=== PATIENT | male | born 1980 | race Caucasian/White ===

== ENCOUNTER 2017-08-15 08:02 | Emergency (ER) | payer SELFPAY ==
[2017-08-15] MEDS ORDERED: ONDANSETRON HCL INJ/PF 4 MG/2 ML SDV IV ONE (08:21)
[2017-08-15] MEDS ORDERED: MORPHINE SULFATE 10 MG/ML INJ IV ONE ×2 (08:21→09:21)
[2017-08-15] MEDS ORDERED: NORMAL SALINE 1000 ML 1,000 ML IV ONE ×2 (08:21)
--- NOTE | 2017-08-15 08:35 | ER Document Report ---
ED General - General Chief Complaint: Abdominal Pain Stated Complaint: ABDOMINAL PAIN Time Seen by Provider: 08/15/17 08:13 TRAVEL OUTSIDE OF THE [place]. IN LAST 30 DAYS: No - HPI Patient complains to provider of: Right lower quadrant abdominal pain Notes: Patient presents today right lower quadrant abdominal pain started approximately 10:00 last night. Patient denies any trauma to the area. Denies any recent heavy lifting. Patient states dull in onset now has increased in intensity. Patient states pain exacerbated with hitting bumps in the road patient also states pain exacerbated with walking and bending. Patient denies any fevers chills nausea vomiting or diarrhea. Patient denies any previous abdominal surgeries. Upon my evaluation patient is voluntarily guarding the right lower quadrant sitting on side the bed. Patient does have a difficult time lying in stretcher. Denies any pain radiation to his testicles or to the other parts of the abdomen. Denies any pain in the back. - Related Data Allergies/Adverse Reactions: Penicillins Allergy (Verified 08/15/17 08:05) pineapple [Pineapple] Allergy (Verified 08/15/17 08:05) Past Medical History - Social History Smoking Status: Unknown if Ever Smoked Family History: Reviewed & Not Pertinent - Past Medical History Cardiac Medical History: Denies: Hx Coronary Artery Disease, Hx Hypertension Pulmonary Medical History: Denies: Hx Asthma Endocrine Medical History: Denies: Hx Diabetes Mellitus Type 1, Hx Diabetes Mellitus Type 2 Renal/ Medical History: Reports: Hx Epididymitis - Immunizations Immunizations up to date: Yes Hx Diphtheria, Pertussis, Tetanus Vaccination: Yes Review of Systems - Review of Systems Constitutional: No symptoms reported EENT: No symptoms reported Cardiovascular: No symptoms reported Respiratory: No symptoms reported Gastrointestinal: Abdominal pain Genitourinary: No symptoms reported Male Genitourinary: No symptoms reported Musculoskeletal: No symptoms reported Skin: No symptoms reported Hematologic/Lymphatic: No symptoms reported Neurological/Psychological: No symptoms reported Physical Exam - Vital signs Vitals: Temp Pulse Resp BP Pulse Ox 97.7 F 90 18 139/90 H 99 08/15/17 08:08 08/15/17 08:08 08/15/17 08:08 08/15/17 08:08 08/15/17 08:08 Interpretation: Normal - General General appearance: Appears well, Alert - HEENT Head: Normocephalic, Atraumatic Eyes: Normal Pupils: PERRL - Respiratory Respiratory status: No respiratory distress Chest status: Nontender Breath sounds: Normal Chest palpation: Normal - Cardiovascular Rhythm: Regular Heart sounds: Normal auscultation Murmur: No - Abdominal Inspection: Normal Distension: No distension Bowel sounds: Normal Tenderness: Tender - Right lower quadrant tenderness voluntary guarding, McBurney's point Organomegaly: No organomegaly - Back Back: Normal, Nontender - Extremities General upper extremity: Normal inspection, Nontender, Normal color, Normal ROM , Normal temperature General lower extremity: Normal inspection, Nontender, Normal color, Normal ROM , Normal temperature, Normal weight bearing. No: Ethan's sign - Neurological Neuro grossly intact: Yes Cognition: Normal Orientation: AAOx4 [place] Coma Scale Eye Opening: Spontaneous [place] Coma Scale Verbal: Oriented [place] Coma Scale Motor: Obeys Commands Tio Coma Scale Total: 15 Speech: Normal Motor strength normal: LUE, RUE, LLE, RLE Sensory: Normal - Psychological Associated symptoms: Normal affect, Normal mood - Skin Skin Temperature: Warm Skin Moisture: Dry Skin Color: Normal Course - Re-evaluation Re-evalutation: 08/15/17 14:24 CT scan negative for acute appendicitis. Negative for any acute abdominal pathology. Lab work does not show any significant pathology. Evaluation patient still mildly tender however this is improved. On examination patient will be discharged home still encouraged patient to observe himself for changes in symptoms return immediately if he develops a fever patient agrees and discharged home - Vital Signs Vital signs: Temp Pulse Resp BP Pulse Ox 97.7 F 90 18 139/90 H 99 08/15/17 08:08 08/15/17 08:08 08/15/17 08:08 08/15/17 08:08 08/15/17 08:08 - Laboratory Result Diagrams: 08/15/17 08:28 08/15/17 08:28 Laboratory results interpreted by me: 08/15/17 08/15/17 08/15/17 08:28 08:28 08:52 WBC 13.2 H Absolute Neutrophils 9.7 H ALT 75 H Urine Blood SMALL H Discharge - Discharge Clinical Impression: RLQ abdominal pain Condition: Good Disposition: HOME, SELF-CARE Instructions: Abdominal Pain ([facility]), Observation for Appendicitis ([facility]) Additional Instructions: At this time your lab work and CAT scan did not show any critical pathology. Please follow-up with your primary care physician. Return to the ER if symptoms worsen. Specifically if you develop a fever and continue to have pain. Take medications as prescribed. He may also take Tylenol and Motrin for pain control. Prescriptions: Ondansetron [Zofran Odt] 4 mg PO Q6 #20 tab.rapdis Tramadol HCl [Ultram 50 mg Tablet] 50 mg PO ASDIR PRN #14 tablet PRN Reason: Forms: Return to Work
[2017-08-15 08:44] LABS: ABSOLUTE BASOPHILS # (AUTO) 0.1 10^3/uL (0.0-0.2); ABSOLUTE EOSINOPHILS # (AUTO) 0.3 10^3/uL (0.0-0.6); ABSOLUTE LYMPHOCYTES (AUTO) 2.2 10^3/uL (0.5-4.7); ABSOLUTE MONOCYTES (AUTO) 0.9 10^3/uL (0.1-1.4); ABSOLUTE NEUT (AUTO) 9.7 10^3/uL (1.7-8.2); BASOPHILS % (AUTO) 0.6 % (0-2); EOSINOPHILS % (AUTO) 2.5 % (0-6); HEMOGLOBIN 14.3 g/dL (13.5-17.0); HGB HCT DIFFERENCE 1.9; LYMPHOCYTES % (AUTO) 16.3 % (13-45); MEAN CORPUSCULAR HEMOGLOBIN 29.9 pg (27.0-33.4); MEAN CORPUSCULAR HGB CONC 34.9 g/dL (32.0-36.0); MEAN CORPUSCULAR VOLUME 86 fl (80-97); MONOCYTES % (AUTO) 6.7 % (3-13); RED BLOOD COUNT 4.79 10^6/uL (4.35-5.55); RED CELL DISTRIBUTION WIDTH 13.1 % (11.5-14.0); SEGMENTED NEUTROPHILS % (AUTO) 73.9 % (42-78); WHITE BLOOD COUNT 13.2 10^3/uL (4.0-10.5)
[2017-08-15 09:03] LABS: ALANINE AMINOTRANSFERASE 75 U/L (21-72); ALBUMIN 4.8 g/dL (3.5-5.0); ALKALINE PHOSPHATASE 72 U/L (38-126); ANION GAP 14 (5-19); ASPARTATE AMINO TRANSFERASE 39 U/L (17-59); BILIRUBIN,DIRECT 0.2 mg/dL (0.0-0.4); BILIRUBIN,TOTAL 0.7 mg/dL (0.2-1.3); BLOOD UREA NITROGEN 14 mg/dL (7-20); CALCIUM 9.4 mg/dL (8.4-10.2); CARBON DIOXIDE 24 mmol/L (22-30); CHLORIDE 105 mmol/L (98-107); CREATININE RESULT 0.82 mg/dL (0.52-1.25); GLUCOSE 98 mg/dL (75-110); LIPASE 72.1 U/L (23-300); POTASSIUM 4.2 mmol/L (3.6-5.0); SODIUM 143.3 mmol/L (137-145); TOTAL PROTEIN 7.8 g/dL (6.3-8.2)
[2017-08-15 09:17] LABS: APPEARANCE,URINE CLEAR; BILIRUBIN,URINE NEGATIVE (NEGATIVE); GLUCOSE, URINE NEGATIVE (NEGATIVE); KETONES,URINE NEGATIVE (NEGATIVE); LEUKOCYTE ESTERASE,URINE NEGATIVE (NEGATIVE); NITRITE,URINE NEGATIVE (NEGATIVE); PROTEIN,URINE NEGATIVE (NEGATIVE); URINE SPECIFIC GRAVITY 1.003; UROBILINOGEN,URINE NEGATIVE mg/dL (<2.0)
--- NOTE | 2017-08-15 11:37 | RADIOLOGY REPORT (SQ) ---
EXAM DESCRIPTION: CT ABD/PELVIS WITH IV ORAL COMPLETED DATE/TIME: 08/15/2017 11:16 am REASON FOR STUDY: RLQ pain COMPARISON: None. TECHNIQUE: CT scan of the abdomen and pelvis performed using helical scanning technique with dynamic intravenous contrast injection. Oral contrast. Images reviewed with lung, soft tissue, and bone win dows. Reconstructed coronal and sagittal MPR images reviewed. Delayed images for evaluation of the ur inary system also acquired. All images stored on PACS. All CT scanners at this facility use dose modulation, iterative reconstruction, and/or weight based d osing when appropriate to reduce radiation dose to as low as reasonably achievable (ALARA). [facility]: Dose Right [facility]: CareDose [facility]: Dose Right [facility]: Teradose 4D [facility]: The Naked Song CONTRAST TYPE AND DOSE: contrast/concentration: Isovue 370.00 mg/ml; Total Contrast Delivered: 74.0 ml; Total Saline Delivered: 66.0 ml RENAL FUNCTION: Creatinine 0.8 BUN 14 RADIATION DOSE: CT Rad equipment meets quality standard of care and radiation dose reduction techniq ues were employed. CTDIvol: 6.2 - 8.8 mGy. DLP: 802 mGy-cm.. LIMITATIONS: None. FINDINGS: LOWER CHEST: No significant findings. No nodules or infiltrates. LIVER: The liver is somewhat hypoattenuating. There is no mass. SPLEEN: Normal size. No focal lesions. PANCREAS: No masses. No significant calcifications. No adjacent inflammation or peripancreatic fluid collections. Pancreatic duct not dilated. GALLBLADDER: No identified stones by CT criteria. No inflammatory changes to suggest cholecystitis. ADRENAL GLANDS: No significant masses or asymmetry. RIGHT KIDNEY AND URETER: No solid masses. No significant calcifications. No hydronephrosis or hyd roureter. LEFT KIDNEY AND URETER: No solid masses. No significant calcifications. No hydronephrosis or hydr oureter. AORTA AND VESSELS: No aneurysm. No dissection. Renal arteries, SMA, celiac without stenosis. RETROPERITONEUM: No retroperitoneal adenopathy, hemorrhage or masses. BOWEL AND PERITONEAL CAVITY: No masses or inflammatory changes. No free fluid or peritoneal masses. APPENDIX: Normal. PELVIS: No mass. No free fluid. Normal bladder. ABDOMINAL WALL: No masses. No hernias. BONES: No significant or acute findings. OTHER: No other significant finding. IMPRESSION: There appears to be some degree of fatty infiltration of the liver. No other significan t abnormality is seen in the abdomen or pelvis. TECHNICAL DOCUMENTATION: JOB ID: [id number] Quality ID # [id number]: Final reports with documentation of one or more dose reduction techniques (e.g., Au tomated exposure control, adjustment of the mA and/or kV according to patient size, use of iterative reconstruction technique) 2010 [email or web address]- All Rights Reserved
[2017-08-15] MEDS ORDERED: KETOROLAC TROMETHAMINE INJ/PF 30 MG/1 ML SDV IV ONE (11:51)
[2017-08-15 12:37] VITALS: BP 119/85
== END 2017-08-15 12:37 | disposition home or self-care (01) ==
LOC: ER 08:02
DX: R10.31 Right lower quadrant pain (principal); Z88.0 Allergy status to penicillin; Z91.018 Allergy to other foods
CPT/HCPCS: 96376; 99284; 96361; 96374; 96375; 36415; 83690; 85025; 80053; 81001; 74177; J1885; J2270; J2405; J7030

== ENCOUNTER 2017-08-19 14:09 | Emergency (ER) | payer OTHER ==
[2017-08-19] MEDS ORDERED: HYDROMORPHONE HCL INJ/PF 2 MG/ML AMPULE IV ONE (14:51)
--- NOTE | 2017-08-19 15:04 | ER Document Report ---
ED Medical Screen (RME) - General Mode of Arrival: Ambulatory Information source: Patient TRAVEL OUTSIDE OF THE [place] IN LAST 30 DAYS: No <TASHA SOSA - Last Filed: 08/19/17 15:15> <MATIAS GARY - Last Filed: 08/19/17 16:18> - General Chief Complaint: Abdominal Pain Stated Complaint: ABDOMINAL PAIN Time Seen by Provider: 08/19/17 14:45 Notes: Patient is a 36 year old male presenting to the emergency department complaining abdominal pain onset Tuesday. Patient states that he was seen here on Tuesday and given treatment and his symptoms temporarily subsided until yesterday. Patient states the pain starts in his lower abdominal and shoots into his right leg and into testicles. Patient also complains of chills which is new. Patient denies dysuria, vomiting, fevers, numbness or tingleness. I have greeted and performed a rapid initial assessment of this patient. A comprehensive ED assessment and evaluation of the patient, analysis of test results and completion of the medical decision making process will be conducted by additional ED providers. (TASHA SOSA) - Related Data Allergies/Adverse Reactions: Penicillins Allergy (Verified 08/19/17 14:10) pineapple [Pineapple] Allergy (Verified 08/19/17 14:10) Past Medical History - Past Medical History Cardiac Medical History: Denies: Hx Coronary Artery Disease, Hx Hypertension Pulmonary Medical History: Denies: Hx Asthma Endocrine Medical History: Denies: Hx Diabetes Mellitus Type 1, Hx Diabetes Mellitus Type 2 Renal/ Medical History: Reports: Hx Epididymitis. Denies: Hx Peritoneal Dialysis - Immunizations Immunizations up to date: Yes Hx Diphtheria, Pertussis, Tetanus Vaccination: Yes <TASHA SOSA - Last Filed: 08/19/17 15:15> Physical Exam <TASHA SOSA - Last Filed: 08/19/17 15:15> <MATIAS GARY - Last Filed: 08/19/17 16:18> - Vital signs Vitals: Temp Pulse Resp BP Pulse Ox 97.9 F 95 18 137/88 H 97 08/19/17 14:14 08/19/17 14:14 08/19/17 14:14 08/19/17 14:14 08/19/17 14:14 - Notes Notes: GENERAL: Alert, interacts well. No acute distress. LUNGS: Clear to auscultation bilaterally, no wheezes, rales, or rhonchi. No respiratory distress. HEART: Regular rate and rhythm. No murmurs, gallops, or rubs. ABDOMEN: Soft, tender to palpation in the RLQ. Non-distended. Bowel sounds present in all 4 quadrants. (TASHA SOSA) Course - Laboratory Result Diagrams: 08/19/17 15:20 08/19/17 15:20 <MATIAS GARY - Last Filed: 08/19/17 16:18> - Vital Signs Vital signs: Temp Pulse Resp BP Pulse Ox 97.9 F 95 18 137/88 H 97 08/19/17 14:14 08/19/17 14:14 08/19/17 14:14 08/19/17 14:14 08/19/17 14:14 - Laboratory Laboratory results interpreted by me: 08/19/17 08/19/17 15:20 15:20 Calcium 10.8 H ALT 75 H Total Protein 8.9 H Albumin 5.3 H Urine Blood SMALL H Scribe Documentation - Scribe Written by Carmine:: Carmine Fields, 08/19/2017 15:16 acting as scribe for :: Herberth <TASHA SOSA - Last Filed: 08/19/17 15:15>
[2017-08-19 15:56] LABS: ABSOLUTE BASOPHILS # (AUTO) 0.1 10^3/uL (0.0-0.2); ABSOLUTE EOSINOPHILS # (AUTO) 0.4 10^3/uL (0.0-0.6); ABSOLUTE LYMPHOCYTES (AUTO) 2.2 10^3/uL (0.5-4.7); ABSOLUTE MONOCYTES (AUTO) 0.9 10^3/uL (0.1-1.4); ABSOLUTE NEUT (AUTO) 5.9 10^3/uL (1.7-8.2); BASOPHILS % (AUTO) 0.7 % (0-2); EOSINOPHILS % (AUTO) 4.3 % (0-6); HEMATOCRIT 46.4 % (37.9-51.0); HEMOGLOBIN 16.2 g/dL (13.5-17.0); HGB HCT DIFFERENCE 2.2; LYMPHOCYTES % (AUTO) 23.4 % (13-45); MEAN CORPUSCULAR HEMOGLOBIN 30.2 pg (27.0-33.4); MEAN CORPUSCULAR HGB CONC 34.9 g/dL (32.0-36.0); MEAN CORPUSCULAR VOLUME 87 fl (80-97); MONOCYTES % (AUTO) 9.2 % (3-13); RED BLOOD COUNT 5.37 10^6/uL (4.35-5.55); RED CELL DISTRIBUTION WIDTH 12.8 % (11.5-14.0); SEGMENTED NEUTROPHILS % (AUTO) 62.4 % (42-78); WHITE BLOOD COUNT 9.4 10^3/uL (4.0-10.5)
[2017-08-19 15:58] LABS: APPEARANCE,URINE CLEAR; BILIRUBIN,URINE NEGATIVE (NEGATIVE); GLUCOSE, URINE NEGATIVE (NEGATIVE); KETONES,URINE NEGATIVE (NEGATIVE); LEUKOCYTE ESTERASE,URINE NEGATIVE (NEGATIVE); NITRITE,URINE NEGATIVE (NEGATIVE); PROTEIN,URINE NEGATIVE (NEGATIVE); URINE SPECIFIC GRAVITY 1.004; UROBILINOGEN,URINE NEGATIVE mg/dL (<2.0)
[2017-08-19 16:14] LABS: ALANINE AMINOTRANSFERASE 75 U/L (21-72); ALBUMIN 5.3 g/dL (3.5-5.0); ALKALINE PHOSPHATASE 65 U/L (38-126); ANION GAP 15 (5-19); ASPARTATE AMINO TRANSFERASE 43 U/L (17-59); BILIRUBIN,DIRECT 0.3 mg/dL (0.0-0.4); BILIRUBIN,TOTAL 0.4 mg/dL (0.2-1.3); BLOOD UREA NITROGEN 15 mg/dL (7-20); CALCIUM 10.8 mg/dL (8.4-10.2); CARBON DIOXIDE 30 mmol/L (22-30); CHLORIDE 99 mmol/L (98-107); CREATININE RESULT 0.93 mg/dL (0.52-1.25); GLUCOSE 81 mg/dL (75-110); POTASSIUM 4.8 mmol/L (3.6-5.0); SODIUM 143.6 mmol/L (137-145); TOTAL PROTEIN 8.9 g/dL (6.3-8.2)
--- NOTE | 2017-08-19 16:43 | ER Document Report ---
ED GI/ - General Chief Complaint: Abdominal Pain Stated Complaint: ABDOMINAL PAIN Time Seen by Provider: 08/19/17 14:45 Mode of Arrival: Ambulatory Notes: The patient is a 36-year-old male who presents with right testicular pain. He was seen in the ER 4 days ago and had a negative CT abdomen pelvis for appendicitis or any other acute processes. He felt better, but the pain returned earlier today and he was told to come back to the ER if it worsened. Patient said that he has had similar pain about 4 years ago when he was diagnosed with epididymitis. No concern for STDs. Patient said that he is having pain when he urinates. He denies nausea, vomiting, diarrhea, constipation, flank pain, fevers, hematuria or rash. TRAVEL OUTSIDE OF THE [place] IN LAST 30 DAYS: No - Related Data Allergies/Adverse Reactions: Penicillins Allergy (Verified 08/19/17 14:10) pineapple [Pineapple] Allergy (Verified 08/19/17 14:10) Past Medical History - General Information source: Patient - Social History Smoking Status: Unknown if Ever Smoked Family History: Reviewed & Not Pertinent Patient has suicidal ideation: No Patient has homicidal ideation: No - Past Medical History Cardiac Medical History: Denies: Hx Coronary Artery Disease, Hx Hypertension Pulmonary Medical History: Denies: Hx Asthma Endocrine Medical History: Denies: Hx Diabetes Mellitus Type 1, Hx Diabetes Mellitus Type 2 Renal/ Medical History: Reports: Hx Epididymitis. Denies: Hx Peritoneal Dialysis - Immunizations Immunizations up to date: Yes Hx Diphtheria, Pertussis, Tetanus Vaccination: Yes Review of Systems - Review of Systems Notes: REVIEW OF SYSTEMS: CONSTITUTIONAL: -fevers, -chills EENT: -eye pain, -difficulty swallowing, -nasal congestion CARDIOVASCULAR:-chest pain, -syncope. RESPIRATORY: -cough, -SOB GASTROINTESTINAL: +RLQ abdominal pain, -nausea, -vomiting, -diarrhea GENITOURINARY: +dysuria, -hematuria MUSCULOSKELETAL: -back pain, -neck pain SKIN: -rash or skin lesions. HEMATOLOGIC: -easy bruising or bleeding. LYMPHATIC: -swollen, enlarged glands. NEUROLOGICAL: -altered mental status or loss of consciousness, -headache, - neurologic symptoms PSYCHIATRIC: -anxiety, -depression. ALL OTHER SYSTEMS REVIEWED AND NEGATIVE. Physical Exam - Vital signs Vitals: Temp Pulse Resp BP Pulse Ox 97.9 F 95 18 137/88 H 97 08/19/17 14:14 08/19/17 14:14 08/19/17 14:14 08/19/17 14:14 08/19/17 14:14 - Notes Notes: PHYSICAL EXAMINATION: GENERAL: Well-appearing, well-nourished and in no acute distress. HEAD: Atraumatic, normocephalic. EYES: Pupils equal round and reactive to light, extraocular movements intact, sclera anicteric, conjunctiva are normal. ENT: nares patent, oropharynx clear without exudates. Moist mucous membranes. NECK: Normal range of motion, supple without lymphadenopathy LUNGS: Breath sounds clear to auscultation bilaterally and equal. No wheezes rales or rhonchi. HEART: Regular rate and rhythm without murmurs ABDOMEN: Soft, mild RLQ tenderness, normoactive bowel sounds. No guarding, no rebound. No masses appreciated. : Tender right epididymis and testicle. Normal lie of testicle. No inguinal hernia palpated. Mild right inguinal lymphadenopathy. EXTREMITIES: Normal range of motion, no pitting or edema. No cyanosis. NEUROLOGICAL: Cranial nerves grossly intact. Normal speech, normal gait. Normal sensory and motor exams. PSYCH: Normal mood, normal affect. SKIN: Warm, Dry, normal turgor, no rashes or lesions noted. Course - Re-evaluation Re-evalutation: Patient with right lower quadrant and right testicular pain that felt similar to his prior episodes of epididymitis. Ultrasound shows right inguinal lymph nodes, but normal blood flow to testicles. No hernia. He had a CT abdomen pelvis 4 days ago which showed a normal appendix and no other acute findings. Dr. Menchaca (Surgicalist refrigeration service inspector) saw and evaluated patient. He does not suspect intra-abdominal pathology at this time. He suspects more of pathology. Pt states that he has no concerns for STDs. Due to patient's symptoms consistent with prior episode of epididymitis, will begin anti- inflammatories, Levaquin and close f/u at Urologist. Given very strict return precautions and he understands. - Vital Signs Vital signs: Temp Pulse Resp BP Pulse Ox 98.6 F 78 14 124/88 H 98 08/19/17 17:52 08/19/17 17:52 08/19/17 17:52 08/19/17 17:52 08/19/17 17:52 - Laboratory Result Diagrams: 08/19/17 15:20 08/19/17 15:20 Laboratory results interpreted by me: 08/19/17 08/19/17 15:20 15:20 Calcium 10.8 H ALT 75 H Total Protein 8.9 H Albumin 5.3 H Urine Blood SMALL H - Diagnostic Test Radiology reviewed: Image reviewed, Reports reviewed Radiology results interpreted by me: Scrotal US: Right inguinal lymph nodes, normal testicles. Discharge - Discharge Clinical Impression: Pain in scrotum Condition: Stable Disposition: HOME, SELF-CARE Additional Instructions: Epididymitis You most likely have epididymitis. This is an inflammation of the organ just behind the testicle, called the epididymis. It can be due to infection in the bladder or prostate. Many cases are simply inflammation and are not caused by germs. Epididymitis often develops after heavy lifting or vigorous exercise. Antibiotics and antiinflammatory medication are often prescribed. Elevation of the scrotum with a jock-strap or tight briefs will help with the pain. Pain medication may be required. Either cold packs or warm sitz baths can help with the pain -- ask your doctor which he recommends for your case. It may take 10 to 14 days until the pain is gone. Avoid heavy lifting during this time. Call the doctor or go to the hospital if you develop fever, increasing pain , or severe swelling, or if you fail to improve as expected. Prescriptions: Hydrocodone/Acetaminophen [Sebring 5-325 mg Tablet] 1 tab PO Q6H PRN #10 tablet PRN Reason: Levofloxacin [Levaquin 750 mg Tablet] 750 mg PO DAILY #10 tablet Naproxen [Naprosyn 250 mg Tablet] 500 mg PO Q12H PRN #14 tablet PRN Reason: Forms: Elevated Blood Pressure Referrals: [facility] [Provider Group] - Follow up as needed
[2017-08-19] MEDS ORDERED: MORPHINE SULFATE 10 MG/ML INJ IV ONE (17:29)
--- NOTE | 2017-08-19 17:39 | RADIOLOGY REPORT (SQ) ---
EXAM DESCRIPTION: U/S SCROTUM W/DOPPLER COMPLETED DATE/TIME: 08/19/2017 5:24 pm REASON FOR STUDY: R testicular and abd pain COMPARISON: None. TECHNIQUE: Static and realtime tucker scale imaging of the scrotum and testes. Selected color Doppler and spectral images recorded to document blood flow. LIMITATIONS: None. FINDINGS: RIGHT: TESTICLE: Normal size. Microlithiasis. Normal blood flow. No mass. EPIDIDYMIS: Normal. HYDROCELE OR VARICOCELE: Small hydrocele with debris. No varicocele. HERNIA OR EXTRA-TESTICULAR MASS: No. OTHER: Small lymph nodes in the right inguinal region. No hernia. LEFT: TESTICLE: Normal size. Microlithiasis. Normal blood flow. No mass. EPIDIDYMIS: Normal. HYDROCELE OR VARICOCELE: Small hydrocele with debris. No varicocele. HERNIA OR EXTRA-TESTICULAR MASS: No. OTHER: No other significant finding. IMPRESSION: NO EVIDENCE OF TESTICULAR MASS OR TORSION. Small lymph nodes in the right inguinal regio n. No hernia. TECHNICAL DOCUMENTATION: JOB ID: [id number] [place]-72 2010 [employer] All Rights Reserved
[2017-08-19] MEDS ORDERED: NAPROXEN 250 MG TABLET PO ONE (19:23)
[2017-08-19] MEDS ORDERED: HYDROCODONE/ACETAMINOPHEN 5-325 MG TABLET PO ONE (19:24)
[2017-08-19] MEDS ORDERED: LEVOFLOXACIN 750 MG TABLET PO ONE (19:24)
--- NOTE | 2017-08-19 19:58 | CONSULTATION REPORT E ---
Consultation Report NAME: JERRY WING : 1980 AGE: 36Y DATE: 08/19/2017 TO: JULIÁN ZAPIEN M.D. FROM: Jae AMBROSE, Requesting Physician The patient is seen at the request of Dr. BROWNLEE, Emergency Department. CHIEF COMPLAINT: Right scrotal pain. REPORT OF CONSULTATION: The patient is a 36-year-old white male with an approximate 1-week history of right testicular pain. The patient was seen in the Emergency Department approximately 1 week ago and got diagnosed with abdominal pain of uncertain etiology. He was sent home on pain medications, antinausea medicine. He had a CT scan of the abdomen and pelvis which was negative for acute appendicitis. The patient reports he continued to have pain mostly in the testicular region and in the upper scrotum. He denies history of trauma. He had a previous episode, not quite as intense, according to his report, approximately 3 years ago and was diagnosed with epididymitis and was treated by a urologist. In the Emergency Department, the patient underwent ultrasonography of the scrotal area on the right side, was found to have small lymph nodes. Otherwise, no hernia, small hydrocele on the right side only. Because of continued pain, surgery was consulted. PAST MEDICAL HISTORY: None. PAST SURGICAL HISTORY: None. ALLERGIES: PENICILLIN. SOCIAL HISTORY: The patient does smoke. 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 REVIEW OF SYSTEMS: As per HPI. CONSTITUTIONAL: Patient denies. CARDIOVASCULAR: Patient denies. MUSCULOSKELETAL: Patient denies. PHYSICAL EXAMINATION: GENERAL: Patient in mild distress. VITAL SIGNS: Stable. PSYCH: Patient is alert and oriented x4. NEUROLOGIC: Grossly intact in the upper and lower extremities. PULMONARY: Lungs clear to auscultation bilaterally. HEART: Without murmur or gallop. ABDOMEN: Soft, nontender. No peritoneal signs. GENITOURINARY: Groins examined bilaterally. Penis circumcised. Hair is shaved partly. Testicles are descended bilaterally. There is tenderness along the right spermatic cord. There may be some fullness in the mid zone, but no becky hematoma, cellulitis, discoloration, etc. LABORATORY PROFILE: Completely unremarkable today. Urinalysis is small blood, but no red cells detected. IMPRESSION: Right inguinal and epididymal pain, most consistent with epididymitis; other urologic diagnoses including orchitis to be considered; no evidence of acute surgical abdomen, inguinal hernia, etc. RECOMMENDATIONS: 1. No indication for surgical intervention. 2. Pain management consideration or p.o. course of antibiotics. 3. Follow up with urology. I addressed the above with patient and patient's mother at bedside as well as the Emergency Department staff. DICTATING PHYSICIAN: JULIÁN ZAPIEN M.D. [id number] PHY#: [id number] ID: [id number] JOB#: [id number] ACCT: [id number] cc:JULIÁN ZAPIEN M.D. > MTDD
[2017-08-19 20:39] VITALS: BP 127/88
== END 2017-08-19 19:49 | disposition home or self-care (01) ==
LOC: ER 14:09
DX: N50.82 Scrotal pain (principal); R10.9 Unspecified abdominal pain; N50.811 Right testicular pain
CPT/HCPCS: 99285; 96374; 96375; 36415; 85025; 80053; 81001; 76870; 93976; J2270; J1170

== ENCOUNTER 2020-01-23 11:39 | Emergency (ER) | payer OTHER ==
--- NOTE | 2020-01-23 12:03 | ER Document Report ---
ED Medical Screen (RME) - General Chief Complaint: Electrocution Stated Complaint: ELECTROCUTION,CHEST PAIN Time Seen by Provider: 01/23/20 12:01 Mode of Arrival: Ambulatory Information source: Patient Notes: 39-year-old male presented to ED for complaint of chest pain after he was working on a stove about 10:30 AM when he became electrocuted causing chest pain to the arm and chest muscles. He is alert oriented respirations regular and unlabored speaking in full sentences. He states he does have a lot of pain in the right arm and chest. I have greeted and performed a rapid initial assessment of this patient. A comprehensive ED assessment and evaluation of the patient, analysis of test results and completion of medical decision making process will be conducted by an additional ED providers. TRAVEL OUTSIDE OF THE [place] IN LAST 30 DAYS: No - Related Data Allergies/Adverse Reactions: Penicillins Allergy (Verified 01/23/20 12:01) pineapple [Pineapple] Allergy (Verified 01/23/20 12:01) Past Medical History - Past Medical History Cardiac Medical History: Denies: Hx Coronary Artery Disease, Hx Hypertension Pulmonary Medical History: Denies: Hx Asthma Endocrine Medical History: Denies: Hx Diabetes Mellitus Type 1, Hx Diabetes Mellitus Type 2 Renal/ Medical History: Reports: Hx Epididymitis. Denies: Hx Peritoneal Dialysis - Immunizations Immunizations up to date: Yes Hx Diphtheria, Pertussis, Tetanus Vaccination: Yes Physical Exam - Vital signs Vitals: Temp Pulse Resp BP Pulse Ox 98.1 F 83 18 141/87 H 98 01/23/20 11:51 01/23/20 11:51 01/23/20 11:51 01/23/20 11:51 01/23/20 11:51 Course - Vital Signs Vital signs: Temp Pulse Resp BP Pulse Ox 98.1 F 83 18 141/87 H 98 01/23/20 11:51 01/23/20 11:51 01/23/20 11:51 01/23/20 11:51 01/23/20 11:51
--- NOTE | 2020-01-23 12:43 | RADIOLOGY REPORT (SQ) ---
EXAM DESCRIPTION: CHEST 2 VIEWS IMAGES COMPLETED DATE/TIME: 01/23/2020 12:32 pm REASON FOR STUDY: Electrocution while working on the stove chest ender COMPARISON: None. EXAM PARAMETERS: NUMBER OF VIEWS: Two views. TECHNIQUE: PA and lateral views of the chest were obtained. RADIATION DOSE: NA LIMITATIONS: None. FINDINGS: LUNGS AND PLEURA: No consolidation, pleural effusion or pneumothorax. MEDIASTINUM AND HILAR STRUCTURES: No mediastinal or hilar contour abnormality. HEART AND VASCULAR STRUCTURES: The cardiac silhouette and pulmonary vasculature are within normal nye its. BONES: No acute findings. HARDWARE: None in the chest. OTHER: No other finding. IMPRESSION: No acute cardiopulmonary process. TECHNICAL DOCUMENTATION: JOB ID: [id number] 2010 [employer]- All Rights Reserved Reading location - IP/workstation name: [email or web address]
[2020-01-23 12:48] LABS: ABSOLUTE BASOPHILS # (AUTO) 0.1 10^3/uL (0.0-0.2); ABSOLUTE EOSINOPHILS # (AUTO) 0.2 10^3/uL (0.0-0.6); ABSOLUTE LYMPHOCYTES (AUTO) 1.9 10^3/uL (0.5-4.7); ABSOLUTE MONOCYTES (AUTO) 0.6 10^3/uL (0.1-1.4); ABSOLUTE NEUT (AUTO) 4.7 10^3/uL (1.7-8.2); BASOPHILS % (AUTO) 0.7 % (0-2); HEMATOCRIT 42.9 % (37.9-51.0); HEMOGLOBIN 15.3 g/dL (13.5-17.0); LYMPHOCYTES % (AUTO) 25.1 % (13-45); MEAN CORPUSCULAR HEMOGLOBIN 31.5 pg (27.0-33.4); MEAN CORPUSCULAR HGB CONC 35.6 g/dL (32.0-36.0); MEAN CORPUSCULAR VOLUME 89 fl (80-97); MONOCYTES % (AUTO) 8.2 % (3-13); PLATELET COUNT 308 10^3/uL (150-450); RED BLOOD COUNT 4.85 10^6/uL (4.35-5.55); RED CELL DISTRIBUTION WIDTH 13.1 % (11.5-14.0); TOTAL CELLS COUNTED % (AUTO) 100 %; WHITE BLOOD COUNT 7.5 10^3/uL (4.0-10.5)
[2020-01-23 12:50] LABS: ALBUMIN 5.1 g/dL (3.5-5.0); ALKALINE PHOSPHATASE 57 U/L (38-126); ANION GAP 10 (5-19); ASPARTATE AMINO TRANSFERASE 89 U/L (17-59); BILIRUBIN,TOTAL 0.4 mg/dL (0.2-1.3); BLOOD UREA NITROGEN 12 mg/dL (7-20); CALCIUM 10.3 mg/dL (8.4-10.2); CARBON DIOXIDE 28 mmol/L (22-30); CHLORIDE 101 mmol/L (98-107); GLUCOSE 101 mg/dL (75-110); POTASSIUM 4.5 mmol/L (3.6-5.0); TOTAL PROTEIN 8.6 g/dL (6.3-8.2)
[2020-01-23 13:32] LABS: ALCOHOL < 10 mg/dL (NONE DETECTED); CREATINE KINASE 170 U/L (55-170)
[2020-01-23 13:39] LABS: APPEARANCE,URINE CLEAR; BILIRUBIN,URINE NEGATIVE (NEGATIVE); COLOR,URINE STRAW; GLUCOSE, URINE NEGATIVE (NEGATIVE); KETONES,URINE NEGATIVE (NEGATIVE); LEUKOCYTE ESTERASE,URINE NEGATIVE (NEGATIVE); NITRITE,URINE NEGATIVE (NEGATIVE); PROTEIN,URINE NEGATIVE (NEGATIVE); URINE SPECIFIC GRAVITY 1.004; UROBILINOGEN,URINE NEGATIVE mg/dL (<2.0)
[2020-01-23 14:02] LABS: URINE AMPHETAMINES SCREEN NEGATIVE; URINE BARBITURATES SCREEN NEGATIVE; URINE BENZODIAZEPINES SCREEN NEGATIVE; URINE COCAINE SCREEN NEGATIVE; URINE MARIJUANA (THC) SCREEN NEGATIVE; URINE METHADONE SCREEN NEGATIVE; URINE PHENCYCLIDINE SCREEN NEGATIVE
--- NOTE | 2020-01-23 16:46 | ER Document Report ---
Entered by YOVANNY ZAMARRIPA SCRIBE 01/23/20 1313 Acting as scribe for:HUMA COPELAND MD ED General - General Chief Complaint: Electrocution Stated Complaint: ELECTROCUTION,CHEST PAIN Time Seen by Provider: 01/23/20 12:01 Mode of Arrival: Ambulatory Information source: Patient Notes: This 39 year old male patient presents to the emergency department today with chest pain. Patient states he was working on his stove at home this morning at 10:30 am and was electrocuted by a wire. Patient states he was holding the wire with his right hand and was attached to the wire for a few seconds during the shock. Patient states he was not wearing gloves and this has happened before. Patient states pain went up his right arm to his chest. Patient states he did not lose consciousness but could not think straight for an hour. Patient states he has a headache, vomited once, and his vision is normal. TRAVEL OUTSIDE OF THE [place] IN LAST 30 DAYS: No - Related Data Allergies/Adverse Reactions: Penicillins Allergy (Verified 01/23/20 12:01) pineapple [Pineapple] Allergy (Verified 01/23/20 12:01) Home Medications: flonase, vistaril, medrol, prazosin, prozac Past Medical History - General Information source: Patient - Social History Smoking Status: Former Smoker Cigarette use (# per day): No Chew tobacco use (# tins/day): Yes - Occasional Frequency of alcohol use: Social Drug Abuse: None Lives with: Family Family History: Reviewed & Not Pertinent Patient has homicidal ideation: No Renal/ Medical History: Reports: Hx Epididymitis Psychiatric Medical History: Reports: Hx Depression, Hx Post Traumatic Stress Disorder - Immunizations Immunizations up to date: Yes Hx Diphtheria, Pertussis, Tetanus Vaccination: Yes Review of Systems - Review of Systems Constitutional: No symptoms reported EENT: No symptoms reported Cardiovascular: See HPI, Chest pain Respiratory: No symptoms reported Gastrointestinal: See HPI, Vomiting Genitourinary: No symptoms reported Male Genitourinary: No symptoms reported Musculoskeletal: See HPI, Other - Pain in R arm Skin: No symptoms reported Hematologic/Lymphatic: No symptoms reported Neurological/Psychological: See HPI, Headaches. denies: Lost consciousness -: Yes All other systems reviewed and negative Physical Exam - Vital signs Vitals: Temp Pulse Resp BP Pulse Ox 98.1 F 83 18 141/87 H 98 01/23/20 11:51 01/23/20 11:51 01/23/20 11:51 01/23/20 11:51 01/23/20 11:51 - General General appearance: Appears well, Alert - HEENT Head: Normocephalic, Atraumatic Eyes: Normal Pupils: PERRL Nasal: Normal Pharynx: Normal - Respiratory Respiratory status: No respiratory distress Breath sounds: Normal Notes: Tenderness with palpation to the left lower sternocostal junction. - Cardiovascular Rhythm: Regular Heart sounds: Normal auscultation Murmur: No - Abdominal Inspection: Normal Distension: No distension Bowel sounds: Normal Tenderness: Nontender - Extremities General upper extremity: Normal inspection. No: Edema General lower extremity: Normal inspection. No: Edema - Neurological Neuro grossly intact: Yes Cognition: Normal Orientation: AAOx4 Speech: Normal Cranial nerves: Normal Cerebellar coordination: Normal - Psychological Associated symptoms: Normal affect, Normal mood - Skin Skin Temperature: Warm Skin Moisture: Dry Skin Color: Normal Course - Re-evaluation Re-evalutation: 01/23/20 16:41 Patient resting comfortably states she is ready to go not having any significant pain at this time. - Vital Signs Vital signs: Temp Pulse Resp BP Pulse Ox 98.1 F 83 19 124/97 H 98 01/23/20 12:01 01/23/20 11:51 01/23/20 16:01 01/23/20 16:00 01/23/20 16:01 01/23/20 16:41 Vital signs stable no acute process. - Laboratory Result Diagrams: 01/23/20 12:22 01/23/20 12:22 Laboratory results interpreted by me: 01/23/20 12:22 Calcium 10.3 H AST 89 H ALT 206 H Total Protein 8.6 H Albumin 5.1 H 01/23/20 16:41 Laboratory results within normal limits except for an AST of 89 and ALT of 206 albumin 5.1 calcium 10.3. Patient also has a normal CPK and also normal troponin x2. - Diagnostic Test Radiology reviewed: Image reviewed, Reports reviewed Radiology results interpreted by me: 01/23/20 16:42 Chest x-ray shows no acute process. - EKG Interpretation by Me Additional EKG results interpreted by me: 05/27/20 16:42 Twelve-lead EKG shows normal sinus rhythm rate of [address]-T wave changes. Discharge - Discharge Clinical Impression: Electrical injury in adult Condition: Stable Disposition: HOME, SELF-CARE Additional Instructions: Recommend [id number] ibuprofen if needed for any pain. Electrical Injury Electrical shocks vary greatly in severity. The history of the exposure, plus the physician's exam, determines the likelihood of internal injury. The most severe injuries are caused by high-voltage lines. As the electricity passes through the body, muscle and nerve tissues are "cooked." Hospitalization is usually required unless the injury was simply a "flash" in which electricity did not actually enter the body. Household current (110 volt) rarely causes internal injury to nerves and muscles. Household shocks are dangerous because the current can cause ventricular fibrillation. Mcguire occur at the site of the shock, but these are treated in much the same way as thermal mcguire. Therefore, if the heart did not stop due to electrocution, the victim is usually treated as an outpatient. Call the doctor or return for examination at any time if there is numbness, increasing pain or swelling, or signs of infection. Recommend ibuprofen [id number] if needed for any pain. Recommend follow-up with your primary care physician there is a mild elevation in liver function tests. Forms: Return to Work I personally performed the services described in the documentation, reviewed and edited the documentation which was dictated to the scribe in my presence, and it accurately records my words and actions.
[2020-01-23 16:58] VITALS: BP 138/96
--- NOTE | 2020-01-23 19:33 | EKG REPORT ---
SEVERITY:- NORMAL ECG - SINUS RHYTHM : Confirmed by: Rizwan Judge MD 23-Jan-2020 19:32:29
== END 2020-01-23 16:58 | disposition home or self-care (01) ==
LOC: ER 11:39
DX: T75.4XXA Electrocution, initial encounter (principal); M79.601 Pain in right arm; R07.9 Chest pain, unspecified; R51 Headache; W86.0XXA Exposure to domestic wiring and appliances, initial encounter; Y93.89 Activity, other specified; Y92.009 Unspecified place in unspecified non-institutional (private) residence as the place of occurrence of the external cause; R11.10 Vomiting, unspecified; F32.9 Major depressive disorder, single episode, unspecified; F43.10 Post-traumatic stress disorder, unspecified; Z79.899 Other long term (current) drug therapy; Z79.52 Long term (current) use of systemic steroids; Z87.891 Personal history of nicotine dependence; Z88.0 Allergy status to penicillin; Z91.018 Allergy to other foods
CPT/HCPCS: 36415; 71046; 80053; 80307; 81001; 82550; 83735; 84484; 85025; 93005; 93010; 99285